=== PATIENT | female | born 1990 | race Hispanic/Latino ===

== ENCOUNTER 2017-08-03 07:14 | Day surgery (SDC) | payer MEDICAID ==
[2017-08-03] MEDS ORDERED: NACL 0.9% 500 ML 500 ML IV SCH (09:00)
[2017-08-03] MEDS ORDERED: ATROPINE 0.1% (CARDIAC) ONE (09:19)
[2017-08-03] MEDS ORDERED: ADRENALIN ONE (09:19)
[2017-08-03] MEDS ORDERED: NITROSTAT SL ONE (09:20)
--- NOTE | 2017-08-03 10:03 | Short Stay Summary ---
Short Stay Documentation Date of service: 08/03/17 - History H&P: obtained from office - Allergies and Medications Current Medications: Allergies No Known Allergies Allergy (Verified 08/03/17 07:22) Home Medications Medication Instructions Recorded Confirmed Last Taken Type Metoprolol Succinate [Toprol Xl] 25 mg PO DAILY 08/03/17 08/03/17 08/02/17 History clonazePAM [ Klonopin] 0.5 mg PO DAILY PRN 08/03/17 08/03/17 Unknown History Active Medications Sodium Chloride (Nacl 0.9% 500 Ml) 500 mls @ 50 mls/hr IV DIRECT SEAN - Physical exam General appearance: no acute distress Integumentary: no rash HEENT: Atraumatic Lungs: Clear to auscultation Breasts: deferred Heart: Regular rate Gastrointestinal: normal Female Genitourinary: deferred Rectal Exam: deferred Extremities: no ischemia Neurological: Normal gait - Brief post op/procedure progress note Date of procedure: 08/03/17 Pre-op diagnosis: Syncope Post-op diagnosis: same Procedure: TTT Anesthesia: none Findings: See report Surgeon: WILNER MENDOZA Estimated blood loss: none Pathology: none Condition: stable - Hospital course Hospital course: Uneventful - Disposition Condition at discharge: Good Disposition: DC-01 TO HOME OR SELFCARE Short Stay Discharge Plan Activity: other (Avoid exposure to extreme heat, increase physical activity and exercise) Weight Bearing Status: Weight Bear as Tolerated Diet: other (Increase water intake especially after waking, avoid large meals, avoid alcohol and food high with carbohydrates. Avoid excessive caffeine) Follow up with: EVERARDO BRISCOE MD [Primary Care Provider] - 7 Days Prescriptions: Metoprolol Succinate [Toprol Xl] 100 mg PO DAILY #30 tab.er.24h
[2017-08-03 10:36] VITALS: BP 124/84
--- NOTE | 2017-08-03 10:36 | Procedure Note ---
TILT TABLE TEST INDICATION: Recurrent syncope. ORDERING PHYSICIAN: Tiara Rosas M.D. PROCEDURES PERFORMED: Tilt-table test. DESCRIPTION OF PROCEDURE: After obtaining written consent, the patient was brought to the [facility] laboratory assistant where the patient was placed securely on the tilt table test. Her baseline blood pressure was 154/101 with a baseline heart rate of 124 beats per minute. The patient was tilted to 85 degrees from horizontal. Immediately after tilting, the patient developed sinus tachycardia with a heart rate up to 170 beats per minute. The patient was kept in the upright position for 10 minutes. During these 10 minutes, the maximum recorded blood pressure was 172/109, and the lowest recorded blood pressure was 91/53. Maximum recorded heart rate was 192, sinus tachycardia. During the upright position, the patient did describe feeling sweaty, nauseated with a tingling in both hands and fingers. The patient did not lose consciousness. The patient was not given nitroglycerin. The patient was tilted back to horizontal with a gradual return of her heart rate back to 139 beats per minute. Her blood pressure supine was 175/99. IMPRESSION: This is a positive tilt table test, findings consistent with postural orthostatic tachycardia syndrome. RECOMMENDATION: The patient will be recommended for physical and behavioral changes as well as the initiation of beta leela therapy. JOB# [id number] DONNA/MARYCARMEN
== END 2017-08-03 10:45 | disposition home or self-care (01) ==
LOC: CATHLABREC 07:14
PROVIDERS: ATTEND Internal Medicine
DX: R55 Syncope and collapse (principal); R00.0 Tachycardia, unspecified; I10 Essential (primary) hypertension; E11.42 Type 2 diabetes mellitus with diabetic polyneuropathy; K21.9 Gastro-esophageal reflux disease without esophagitis; E66.9 Obesity, unspecified; Z68.37 Body mass index [BMI] 37.0-37.9, adult
CPT/HCPCS: 93660; J7040; J0171; J0461